=== PATIENT | male | born 1970 | race Caucasian/White ===

== ENCOUNTER 2016-08-17 10:05 | Emergency (ER) | payer OTHER ==
[~2016-08-17] VITALS: Ht 177.8 cm; Wt 105.9 kg
[2016-08-17] MEDS ORDERED: NAPROSYN500 MG PO (12:43)
[2016-08-17] MEDS ORDERED: VALIUM5 MG PO (12:43)
[2016-08-17] MEDS ORDERED: PREDNISONE20 MG PO (12:43)
[2016-08-17 13:11] VITALS: BP 121/60
== END 2016-08-17 13:11 | disposition home or self-care (01) ==
LOC: EME 10:05
DX: M51.16 Intervertebral disc disorders with radiculopathy, lumbar region (principal)
CPT/HCPCS: 72131; 93005; 99281; 99284; J1885